=== PATIENT | male | born 1980 | race Caucasian/White ===

== ENCOUNTER 2020-07-07 17:33 | Emergency (ER) | payer OTHER ==
--- NOTE | 2020-07-07 18:02 | ERPHSYRPT ---
- History of Present Illness Time Seen by Provider: 07/07/20 17:45 Source: patient Patient Subjective Stated Complaint: Pt states that for approx 1 month he has been having upper thigh pain and it now radiates down his legs and today it began hurting in his left shoulder, pt states that the pain gets worse with the more walking he does Triage Nursing Assessment: Pt was brought to the ER by his , isabella boyd, rates pain as 9.5/10, pt unable to lift legs higher than a couple of inches and when he does he has severe pain, no difficulties with strength while pushing my hands with his feet or pulling with his hands, pt reports severe pain in avelina big toes, pulses normal, skin n/w/d Physician History: A 40-year-old male who presents with a chief complaint of generalized pain. His pain is mainly located in the anterior aspect of his legs and thighs and reportedly radiates down to his feet. He also complained of back pain and shoulder pain and upper arm pain. His symptoms have been present for a month and reportedly got worse today. He reports having a recent meniscus repair of the right knee. He denies any fever, chills, shortness of breath, cough, recent illness, rash. He did endorse having a history of hypothyroidism and reportedly has been taken Aleve for his symptoms with no relief. The patient reportedly works in a coal mine. That the patient was having difficulty hip flexion and up the bed. However, the patient was able to walk in the emergency department without difficulty. Urinary and bowel incontinence, generalized lower extremity weakness, numbness or paresthesias. Allergies/Adverse Reactions: No Known Drug Allergies Allergy (Verified 07/07/20 17:54) Home Medications: Levothyroxine Sodium 112 Mcg [Synthroid 112 Mcg] 112 mcg PO DAILY 07/07/20 [History] Omeprazole 20 mg PO DAILY 07/07/20 [History] Travel Risk - International Travel Have you traveled outside of the country in past 3 weeks: No - Coronavirus Screening Are you exhibiting any of the following symptoms?: No Close contact with a COVID-19 positive Pt in past 14-21 Days: No - Review of Systems Constitutional: No Symptoms, Fever, No Chills Eyes: No Symptoms Ears, Nose, & Throat: No Symptoms Respiratory: No Symptoms, No Cough, No Cyanosis, No Dyspnea Musculoskeletal: Back Pain, Myalgias, No Arthralgias, No Fall, No Injury, No Joint Pain Skin: No Symptoms Neurological: No Symptoms Psychological: No Symptoms All Other Systems: Reviewed and Negative - Past Medical History Pertinent Past Medical History: Yes Endocrine Medical History: Hypothyroidism GI Medical History: GERD - Past Surgical History Past Surgical History: Yes Other Surgical History: reconstructed left ear drum, sinus surgery - Social History Smoking Status: Never smoker Exposure to second hand smoke: No Drug Use: none Patient Lives Alone: No - Nursing Vital Signs Nursing Vital Signs: Initial Vital Signs Temperature 99.1 F 07/07/20 17:42 Pulse Rate 87 07/07/20 17:42 Respiratory Rate 16 07/07/20 17:42 Blood Pressure 113/65 07/07/20 17:42 O2 Sat by Pulse Oximetry 99 07/07/20 17:42 Pain Scale Pain Intensity 7 - Physical Exam General Appearance: no apparent distress, alert Eye Exam: PERRL/EOMI, eyes nml inspection Ears, Nose, Throat Exam: normal ENT inspection, No TMs normal, No pharynx normal, No moist mucous membranes, No TM abnormal (L) Neck Exam: normal inspection, non-tender, supple Respiratory Exam: normal breath sounds, lungs clear, No chest tenderness, No respiratory distress Cardiovascular Exam: regular rate/rhythm, normal heart sounds, No murmur, No fri ction rub, No gallop, No tachycardia Gastrointestinal/Abdomen Exam: soft, normal bowel sounds, No tenderness, No distention, No mass, No guarding Rectal Exam: deferred Back Exam: normal inspection, No CVA tenderness Extremity Exam: normal inspection, other (Stand of the tip of his toes without difficulty. Knee flexion, hip flexion and dorsi flexion were 4+ bilaterally. [employer] Service [employer] strength was 4+ bilaterally. Compartments were soft in his upper and lower extremities. There is no asymmetric swelling in either of his extremities upon examination. He did no), No joint swelling, No tenderness Neurologic Exam: alert, oriented x 3, cooperative, other (Was intact and equal in the L4, L5 and S1 nerve root distributions of the feet. No ankle clonus. Patellar reflexes were 2+ bilaterally) Skin Exam: normal color, warm, dry, No rash SpO2 Interpretation: normal SpO2: 99 O2 Delivery: Room Air - Course Nursing assessment & vital signs reviewed: Yes Ordered Tests: Active Orders 24 hr Category Date Time Status BMP Stat Lab 07/07/20 18:20 Completed CBC W DIFF Stat Lab 07/07/20 18:20 Completed CK (IN-HOUSE) [CK-Creatinine Phosphokinase] Stat Lab 07/07/20 18:20 Completed Hepatic Function Panel Stat Lab 07/07/20 18:20 Completed TSH [TSH, 3RD Generation] Stat Lab 07/07/20 18:20 Completed UA W/RFX UR CULTURE Stat Lab 07/07/20 19:10 Completed Lab/Rad Data: Laboratory Result Diagrams 07/07/20 18:20 07/07/20 18:20 Laboratory Results 07/07/20 07/07/20 07/07/20 Range/Units 19:10 18:20 18:20 WBC (4.0-10.5) K/mm3 RBC (4.1-5.6) M/mm3 Hgb (12.5-18.0) gm/dl Hct (42-50) % MCV (78-100) fl MCH (26-32) pg MCHC (32-36) g/dl RDW (11.5-14.0) % Plt Count (150-450) K/mm3 MPV (7.5-11.0) fl Gran % (36.0-66.0) % Eos # (Auto) (0-0.5) Absolute Lymphs (auto) (1.0-4.6) Absolute Monos (auto) (0.0-1.3) Lymphocytes % (24.0-44.0) % Monocytes % (0.0-12.0) % Eosinophils % (0.00-5.0) % Basophils % (0.0-0.4) % Absolute Granulocytes (1.4-6.9) Basophils # (0-0.4) Sodium (137-145) mmol/L Potassium (3.5-5.1) mmol/L Chloride (98-107) mmol/L Carbon Dioxide (22-30) mmol/L Anion Gap (5-15) MEQ/L BUN (9-20) mg/dL Creatinine (0.66-1.25) mg/dL Estimated GFR ML/MIN Glucose (74-106) mg/dL Calcium (8.4-10.2) mg/dL Total Bilirubin 0.30 (0.2-1.3) mg/dL Direct Bilirubin 0.1 (0.0-0.4) mg/dL AST 29 (17-59) U/L ALT 21 (0-50) U/L Alkaline Phosphatase 63 (38-126) U/L Creatine Kinase 221 H (55-170) U/L Serum Total Protein 7.3 (6.3-8.2) g/dL Albumin 4.1 (3.5-5.0) g/dL TSH 3rd Generation 1.140 (0.47-4.68) mIU/L Urine Color YELLOW (YELLOW) Urine Appearance CLEAR (CLEAR) Urine pH 6.0 (5-6) Ur Specific [place] 1.024 (1.005-1.025) Urine Protein NEGATIVE (Negative) Urine Ketones NEGATIVE (NEGATIVE) Urine Blood NEGATIVE (0-5) Mainor/ul Urine Nitrite NEGATIVE (NEGATIVE) Urine Bilirubin NEGATIVE (NEGATIVE) Urine Urobilinogen NEGATIVE (0-1) mg/dL Ur Leukocyte Esterase NEGATIVE (NEGATIVE) Urine WBC (Auto) NONE (0-5) /HPF Urine RBC (Auto) NONE (0-2) /HPF U Epithel Cells (Auto) NONE (FEW) /HPF Urine Bacteria (Auto) NONE (NEGATIVE) /HPF Urine Mucus (Auto) SLIGHT (NEGATIVE) /HPF Urine Culture Reflexed NO (NO) Urine Glucose NEGATIVE (NEGATIVE) mg/dL 07/07/20 07/07/20 Range/Units 18:20 18:20 WBC 9.9 (4.0-10.5) K/mm3 RBC 4.87 (4.1-5.6) M/mm3 Hgb 12.9 (12.5-18.0) gm/dl Hct 40.1 L (42-50) % MCV 82.3 (78-100) fl MCH 26.5 (26-32) pg MCHC 32.2 (32-36) g/dl RDW 14.0 (11.5-14.0) % Plt Count 192 (150-450) K/mm3 MPV 9.5 (7.5-11.0) fl Gran % 75.4 H (36.0-66.0) % Eos # (Auto) 0.33 (0-0.5) Absolute Lymphs (auto) 1.18 (1.0-4.6) Absolute Monos (auto) 0.90 (0.0-1.3) Lymphocytes % 11.9 L (24.0-44.0) % Monocytes % 9.1 (0.0-12.0) % Eosinophils % 3.3 (0.00-5.0) % Basophils % 0.3 (0.0-0.4) % Absolute Granulocytes 7.45 H (1.4-6.9) Basophils # 0.03 (0-0.4) Sodium 136 L (137-145) mmol/L Potassium 3.9 (3.5-5.1) mmol/L Chloride 103 (98-107) mmol/L Carbon Dioxide 29 (22-30) mmol/L Anion Gap 7.5 (5-15) MEQ/L BUN 18 (9-20) mg/dL Creatinine 0.93 (0.66-1.25) mg/dL Estimated GFR > 60.0 ML/MIN Glucose 93 (74-106) mg/dL Calcium 8.9 (8.4-10.2) mg/dL Total Bilirubin (0.2-1.3) mg/dL Direct Bilirubin (0.0-0.4) mg/dL AST (17-59) U/L ALT (0-50) U/L Alkaline Phosphatase (38-126) U/L Creatine Kinase (55-170) U/L Serum Total Protein (6.3-8.2) g/dL Albumin (3.5-5.0) g/dL TSH 3rd Generation (0.47-4.68) mIU/L Urine Color (YELLOW) Urine Appearance (CLEAR) Urine pH (5-6) Ur Specific [place] (1.005-1.025) Urine Protein (Negative) Urine Ketones (NEGATIVE) Urine Blood (0-5) Mainor/ul Urine Nitrite (NEGATIVE) Urine Bilirubin (NEGATIVE) Urine Urobilinogen (0-1) mg/dL Ur Leukocyte Esterase (NEGATIVE) Urine WBC (Auto) (0-5) /HPF Urine RBC (Auto) (0-2) /HPF U Epithel Cells (Auto) (FEW) /HPF Urine Bacteria (Auto) (NEGATIVE) /HPF Urine Mucus (Auto) (NEGATIVE) /HPF Urine Culture Reflexed (NO) Urine Glucose (NEGATIVE) mg/dL - Progress Progress: unchanged Progress Note: 07/07/20 18:19 The patient had an MRI of the right knee in April 2020 that showed an interstitial partial tear involving the mid to proximal ACL. 07/07/20 18:43 In appearance. The patient presents with generalized myalgias and pain that is been present over the last month. His pain seems to be present in both hips and thighs. He also complained of some back pain and pain in his shoulders. Overall, the patient generally appears to be well and his vital signs are relatively benign. He seems to be pretty strong in his upper and lower extremities and I currently have a low suspicion for cauda equina syndrome, spinal epidural abscess or spinal hematoma. Labs to include TSH, CK, CBC, BMP and LFTs are currently pending. I have a suspicion that these may be normal and if so I believe he can be safely discharged to follow-up with his primary care provider for further evaluation and management. He can continue to take Tylenol and or ibuprofen as needed for pain. He is already demonstrated the ability to ambulate independently. Counseled pt/family regarding: lab results, diagnosis, need for follow-up - Departure Departure Disposition: Home Clinical Impression: Myalgia, Elevated CK, Granulocyte anomaly Condition: Stable Critical Care Time: No Referrals: DALY KAUR MD [Primary Care Provider] - Additional Instructions: Please take Tylenol and or ibuprofen for any ongoing pain and follow-up with your primary care provider for further evaluation and management. You may need additional testing to determine the exact cause of your symptoms. We have this can be done as an outpatient.
[2020-07-07 18:33] LABS: Absolute Neutrophil Ct (ANC) 7.45 (1.4-6.9); BASOPHIL % 0.3 % (0.0-0.4); Basophil (Absolute #) 0.03 (0-0.4); Eosinophil % 3.3 % (0.00-5.0); Eosinophil (Absolute #) 0.33 (0-0.5); Hematocrit 40.1 % (42-50); Hemoglobin 12.9 gm/dl (12.5-18.0); Lymphocyte (Absolute #) 1.18 (1.0-4.6); Lymphocytes % 11.9 % (24.0-44.0); Mean Cell Volume 82.3 fl (78-100); Mean Corpuscular Hemoglobin 26.5 pg (26-32); Mean Corpuscular Hgb Concent. 32.2 g/dl (32-36); Mean Platelet Volume 9.5 fl (7.5-11.0); Monocytes % 9.1 % (0.0-12.0); Neutrophil % 75.4 % (36.0-66.0); Platelet Count 192 K/mm3 (150-450); Red Blood Count 4.87 M/mm3 (4.1-5.6); White Blood Count 9.9 K/mm3 (4.0-10.5)
[2020-07-07 18:45] LABS: ALBUMIN 4.1 g/dL (3.5-5.0); BILIRUBIN,TOTAL 0.3 mg/dL (0.2-1.3); Direct Bilirubin 0.1 mg/dL (0.0-0.4); Total Protein 7.3 g/dL (6.3-8.2)
[2020-07-07 18:46] LABS: ANION GAP 7.5 MEQ/L (5-15); BLOOD UREA NITROGEN 18 mg/dL (9-20); CHLORIDE 103 mmol/L (98-107); Calcium 8.9 mg/dL (8.4-10.2); Carbon Dioxide 29 mmol/L (22-30); Creatinine 1 0.93 mg/dL (0.66-1.25); EST GLOMERULAR FILTRATION RATE > 60.0 ML/MIN; Glucose 93 mg/dL (74-106); Potassium 3.9 mmol/L (3.5-5.1); SODIUM 136 mmol/L (137-145)
[2020-07-07 19:14] LABS: TSH, 3RD Generation 1.14 mIU/L (0.47-4.68)
[2020-07-07 19:26] VITALS: O2SAT 99
[2020-07-07 19:30] VITALS: BP 130/80; PULSE 91
[2020-07-07 19:31] LABS: Appearance CLEAR (CLEAR); Bilirubin NEGATIVE (NEGATIVE); Blood NEGATIVE Ery/ul (0-5); Glucose NEGATIVE (NEGATIVE); Ketones NEGATIVE (NEGATIVE); Leukocyte Esterase NEGATIVE (NEGATIVE); Mucus SLIGHT /HPF (NEGATIVE); Nitrite NEGATIVE (NEGATIVE); Protein,Urine Dip NEGATIVE (Negative); Specific Gravity 1.024 (1.005-1.025); Urobilinogen NEGATIVE mg/dL (0-1)
== END 2020-07-07 19:33 | disposition home or self-care (01) ==
LOC: ED 17:33
DX: M79.18 Myalgia, other site (principal); R79.89 Other specified abnormal findings of blood chemistry; D72.0 Genetic anomalies of leukocytes; Z79.899 Other long term (current) drug therapy
CPT/HCPCS: 36415; 80048; 80076; 81001; 82550; 84443; 85025; 99283